=== PATIENT | male | born 1940 | race African-American/Black ===

== ENCOUNTER 2020-05-20 11:29 | Inpatient (IN) | payer OTHER, MEDICARE ==
[~2020-05-20] VITALS: Ht 175.3 cm; Wt 67.8 kg
[2020-05-20] MEDS ORDERED: methylPREDNISolone SOD SUCC 125 MG/2 ML VL IV ONE (12:00)
[2020-05-20 12:48] LABS: Basophils # (auto) 0 10 ^3/uL (0-0.2); Basophils % (auto) 0.3 % (0.0-2.0); Eosinophils # (auto) 0 10 ^3/uL (0-0.8); Eosinophils % (auto) 0.3 % (0.0-7.0); Hematocrit 42.8 % (41.0-53.0); Hemoglobin 14.4 g/dL (13.5-17.5); Lymphocytes # (auto) 0.5 10 ^3/uL (0.4-5.4); Lymphocytes % (auto) 7.2 % (10.0-50.0); Mean Corpuscular Hemoglobin 28.8 pg (28.0-32.0); Mean Corpuscular Hgb Conc. 33.5 g/dL (32.0-36.0); Mean Corpuscular Volume 85.8 fL (80.0-100.0); Monocytes # (auto) 0.9 10 ^3/uL (0-1.3); Monocytes % (auto) 12.8 % (0.0-12.0); Neutrophils # (auto) 5.7 10 ^3/uL (1.6-8.6); Neutrophils % (auto) 79.4 % (37.0-80.0); Nucleated Red Blood Cells % 0.1 %; Red Blood Cells 4.99 10^6/uL (4.5-5.90); White Blood Cell 7.2 10^3/uL (4.4-10.8)
[2020-05-20 13:01] LABS: Albumin 2.7 g/dL (3.4-5.0); Anion Gap 8 (5-15); Blood Urea Nitrogen 34 mg/dL (7-18); Calcium 9.1 mg/dL (8.5-10.1); Carbon Dioxide 32 mmol/L (21-32); Chloride 97 mmol/L (98-107); Glucose 117 mg/dL (74-106); Sodium 137 mmol/L (136-145)
[2020-05-20 13:11] LABS: Alanine Aminotransferase 57 U/L (16-61); Alkaline Phosphatase 74 U/L (45-117); Aspartate Aminotransferase 77 U/L (15-37); BUN/Creatinine Ratio 20.4; Bilirubin, Total 0.7 mg/dL (0.2-1.0); GFR African American 51 mL/min; GFR Non-African American 42 mL/min; Total Protein 8.5 g/dL (6.4-8.2)
[2020-05-20 13:20] LABS: CRP High Sensitivity > 19.0 mg/dL (< 0.3)
[2020-05-20] MEDS ORDERED: SOD CHL 0.9%/ KCL 40MEQ 1,000 ML IV ONE (18:00)
[2020-05-20] MEDS ORDERED: NITROGLYCERIN 0.4 MG SL TAB SL PRN (18:00)
[2020-05-20] MEDS ORDERED: REMDESIVIR PER PHARMACY 0 ML IV SCH (18:00)
[2020-05-20] MEDS ORDERED: hydrALAZINE HCL 20 MG/ML VL IV PRN (18:00)
[2020-05-20] MEDS ORDERED: ONDANSETRON HCL 4 MG/2 ML VIAL IV PRN (18:00)
[2020-05-20] MEDS ORDERED: ACETAMINOPHEN 500 MG TAB PO PRN (18:00)
[2020-05-20] MEDS ORDERED: MORPHINE SULFATE INJECTION 2 MG/ML SYRG IV PRN ×2 (18:00)
[2020-05-20] MEDS ORDERED: HYDROcodone-ACET 5/325MG TAB PO PRN (18:00)
[2020-05-20 19:25] LABS: Lactate Dehydrogenase 612 U/L (87-241)
[2020-05-20 20:08] LABS: CRP High Sensitivity > 19.0 mg/dL (< 0.3)
[2020-05-20] MEDS: BUDESONIDE (INHALATION) 180 MCG IH IN SCH (22:00)
[2020-05-20] MEDS: BUDESONIDE (INHALATION) 0.5 MG/2 ML NEB NEB SCH (22:00)
[2020-05-20] MEDS: ENOXAPARIN SOD 40 MG/0.4 ML SYRINGE SC SCH (22:38)
[2020-05-20] MEDS ORDERED: REMDESIVIR 200 MG in NS 210ml LOADING DOSE ADULT IV ONE (23:00)
[2020-05-21] MEDS ORDERED: OMEP20TA PO (02:18)
[2020-05-21] MEDS ORDERED: CHOL20007 PO (02:18)
[2020-05-21] MEDS ORDERED: AMLO-489 PO (02:18)
[2020-05-21] MEDS ORDERED: HYDR25TA4 PO (02:18)
[2020-05-21] MEDS ORDERED: POTA10TA51 PO (02:18)
[2020-05-21 05:28] LABS: Urine Bacteria MOD /hpf (None Seen); Urine Blood Negative /uL (Negative); Urine Mucus MODERATE (None Seen); Urine Specific Gravity 1.026 (1.001-1.035); Urine WBC 19 /hpf (0 - 3)
[2020-05-21] MEDS: BUDESONIDE (INHALATION) 180 MCG IH IN SCH ×2 (06:05→19:23)
[2020-05-21 07:00] LABS: Basophils # (auto) 0 10 ^3/uL (0-0.2); Basophils % (auto) 0.2 % (0.0-2.0); Eosinophils # (auto) 0 10 ^3/uL (0-0.8); Hematocrit 39.9 % (41.0-53.0); Hemoglobin 13.6 g/dL (13.5-17.5); Lymphocytes # (auto) 0.6 10 ^3/uL (0.4-5.4); Lymphocytes % (auto) 10.4 % (10.0-50.0); Mean Corpuscular Hemoglobin 29.1 pg (28.0-32.0); Mean Corpuscular Volume 85.5 fL (80.0-100.0); Monocytes # (auto) 0.9 10 ^3/uL (0-1.3); Monocytes % (auto) 14.3 % (0.0-12.0); Neutrophils # (auto) 4.7 10 ^3/uL (1.6-8.6); Neutrophils % (auto) 75.1 % (37.0-80.0); Nucleated Red Blood Cells % 0.1 %; Red Blood Cells 4.66 10^6/uL (4.5-5.90); Red Cell Distribution Width 15.1 % (11.8-14.3); White Blood Cell 6.2 10^3/uL (4.4-10.8)
[2020-05-21 07:23] LABS: Calcium 9.1 mg/dL (8.5-10.1); Potassium 3.3 mmol/L (3.5-5.1)
[2020-05-21 07:32] LABS: Albumin 2.4 g/dL (3.4-5.0); BUN/Creatinine Ratio 30.9; Bilirubin, Total 0.4 mg/dL (0.2-1.0); Total Protein 7.7 g/dL (6.4-8.2)
[2020-05-21 08:00] VITALS: BP 125/67
[2020-05-21] MEDS: ALBUTEROL SULF HFA 90MCG INH 200DOSE IN PRN ×2 (08:53→19:23)
[2020-05-21] MEDS ORDERED: cefTRIAXone 1GM/50ML D5W 50 ML IV SCH (09:00)
[2020-05-21] MEDS ORDERED: CHOLECALCIFEROL (VITD3) 2,000 UNIT CAP/TAB PO SCH (10:00)
[2020-05-21] MEDS ORDERED: amLODIPine BESYLATE 5 MG TAB PO SCH (10:00)
[2020-05-21] MEDS ORDERED: DexAMETHasone SOD PHOS 10MG/1ML VIAL INJ IV SCH (10:00)
[2020-05-21] MEDS ORDERED: ZINC SULFATE 220mg CAP or TAB PO SCH (10:00)
[2020-05-21] MEDS ORDERED: ASCORBIC ACID 1,000 MG TAB PO SCH (10:00)
[2020-05-21] MEDS ORDERED: AZITHROMYCIN 500MG/ 250ML 250 ML IV SCH (10:00)
[2020-05-21] MEDS: BUDESONIDE (INHALATION) 0.5 MG/2 ML NEB NEB SCH (10:00)
[2020-05-21] MEDS ORDERED: FAMOTIDINE 20 MG TAB PO SCH (10:00)
[2020-05-21] MEDS: ENOXAPARIN SOD 40 MG/0.4 ML SYRINGE SC SCH (10:03)
[2020-05-21] MEDS ORDERED: REMDESIVIR 100 MG in SODIUM CHL 0.9% 250 ML IV SCH (15:00)
[2020-05-21 16:00] VITALS: BP 128/63
[2020-05-21] MEDS ORDERED: ALBUAER3 IN (16:27)
[2020-05-21] MEDS ORDERED: CHOL1CAP47 PO (16:27)
[2020-05-21] MEDS ORDERED: FAMO-12 PO (16:27)
[2020-05-21] MEDS ORDERED: ZINC100T5 PO (16:27)
[2020-05-21] MEDS ORDERED: ASCO10003 PO (16:27)
[2020-05-21] MEDS ORDERED: AZIT500T66 PO (16:27)
[2020-05-21] MEDS ORDERED: DEX4T PO (16:27)
[2020-05-21] MEDS ORDERED: AML5T PO (16:27)
[2020-05-21] MEDS ORDERED: ASPI81CH59 PO (16:29)
[2020-05-21] MEDS ORDERED: ATOR20TA50 PO (16:29)
[2020-05-21 19:10] VITALS: BP 125/67
[2020-05-21 19:21] VITALS: BP 125/67
== END 2020-05-21 20:30 | disposition home or self-care (01) | DRG 177 ==
LOC: ER 11:29 → TELE 17:47 → TELE-EAST 23:40
PROVIDERS: ADMIT Nurse Practitioner Acute Care; ATTEND Hospitalist
PROC: XW033E5 Introduction of Remdesivir Anti-infective into Peripheral Vein, Percutaneous Approach, New Technology Group 5 (ICD-10-PCS; principal; 2020-05-20)
DX: U07.1 COVID-19 (principal); J96.01 Acute respiratory failure with hypoxia; N17.0 Acute kidney failure with tubular necrosis; J12.82 Pneumonia due to coronavirus disease 2019; D68.59 Other primary thrombophilia; E44.0 Moderate protein-calorie malnutrition; D89.839 Cytokine release syndrome, grade unspecified; R79.82 Elevated C-reactive protein (CRP); E87.6 Hypokalemia; N18.30 Chronic kidney disease, stage 3 unspecified; E88.09 Other disorders of plasma-protein metabolism, not elsewhere classified; K21.9 Gastro-esophageal reflux disease without esophagitis; E78.5 Hyperlipidemia, unspecified; K29.70 Gastritis, unspecified, without bleeding; Z96.659 Presence of unspecified artificial knee joint; I12.9 Hypertensive chronic kidney disease with stage 1 through stage 4 chronic kidney disease, or unspecified chronic kidney disease; E78.00 Pure hypercholesterolemia, unspecified; Z90.49 Acquired absence of other specified parts of digestive tract; Z79.899 Other long term (current) drug therapy; Z79.891 Long term (current) use of opiate analgesic; Z79.01 Long term (current) use of anticoagulants
CPT/HCPCS: 36415; 71045; 80053; 81001; 82728; 83605; 83615; 83880; 84443; 84484; 85025; 85379; 86141; 87040; 87426; 93005; 94640; G0378; J0696; J1100

== ENCOUNTER 2021-02-21 10:05 | Emergency (ER) | payer OTHER, MEDICARE ==
[~2021-02-21] VITALS: Ht 175.3 cm; Wt 72.6 kg
[~2021-02-21 10:05] MED LIST: ALBUAER3 IN; AML5T PO; ASCO10003 PO; ASPI81CH59 PO; ATOR20TA50 PO; AZIT500T66 PO; CHOL1CAP47 PO; DEX4T PO; FAMO-12 PO; ZINC100T5 PO
[2021-02-21] MEDS ORDERED: LACTULOSE 20Gm/30ML SOLN PO ONE (13:15)
[2021-02-21 14:14] VITALS: BP 112/57
== END 2021-02-21 13:31 | disposition home or self-care (01) ==
LOC: ER 10:05
DX: K59.00 Constipation, unspecified (principal); K21.9 Gastro-esophageal reflux disease without esophagitis; E78.5 Hyperlipidemia, unspecified; I10 Essential (primary) hypertension; Z90.49 Acquired absence of other specified parts of digestive tract; Z96.651 Presence of right artificial knee joint; Z79.82 Long term (current) use of aspirin; Z79.899 Other long term (current) drug therapy
CPT/HCPCS: 74176

== ENCOUNTER 2024-03-13 10:06 | Inpatient (IN) | payer MEDICARE, OTHER ==
[~2024-03-13] VITALS: Ht 177.8 cm; Wt 80.2 kg
[2024-03-13 10:31] LABS: Basophils # (auto) 0.1 10 ^3/uL (0-0.2); Basophils % (auto) 1.5 % (0.0-2.0); Eosinophils # (auto) 0.2 10 ^3/uL (0-0.8); Eosinophils % (auto) 4.1 % (0.0-7.0); Hematocrit 44.2 % (41.0-53.0); Hemoglobin 14.7 g/dL (13.5-17.5); Lymphocytes # (auto) 1.4 10 ^3/uL (0.4-5.4); Lymphocytes % (auto) 29.2 % (10.0-50.0); Mean Corpuscular Hemoglobin 29.6 pg (28.0-32.0); Mean Corpuscular Hgb Conc. 33.2 g/dL (32.0-36.0); Monocytes # (auto) 0.5 10 ^3/uL (0-1.3); Monocytes % (auto) 10.7 % (0.0-12.0); Neutrophils # (auto) 2.6 10 ^3/uL (1.6-8.6); Neutrophils % (auto) 54.5 % (37.0-80.0); Nucleated Red Blood Cells % 0.1 %; Platelet Count (auto) 268 10^3/uL (140-450); Red Blood Cells 4.97 10^6/uL (4.5-5.90); Red Cell Distribution Width 14.5 % (11.8-14.3); White Blood Cell 4.7 10^3/uL (4.4-10.8)
[2024-03-13 10:53] LABS: INR 1.03 (0.9-1.15); Partial Thromboplastin Time 26.8 SEC (24.5-34.5); Prothrombin Time 10.9 sec (9.3-11.8)
[2024-03-13 11:00] VITALS: PULSE 65; RESP 18; O2SAT 98
[2024-03-13] MEDS: ONDANSETRON ODT 4 MG TAB PO ONE (11:11)
[2024-03-13] MEDS: FAMOTIDINE 20 MG TAB PO ONE (11:11)
[2024-03-13 11:13] LABS: Alanine Aminotransferase 24 U/L (7-40); Albumin 4.2 g/dL (3.2-4.8); Alkaline Phosphatase 55 U/L (46-116); Anion Gap 4 (5-15); Aspartate Aminotransferase 18 U/L (13-40); BUN/Creatinine Ratio 11.4 (10.0-20.0); Bilirubin, Total 0.4 mg/dL (0.2-1.0); Blood Urea Nitrogen 14 mg/dL (9-23); Calcium 10.2 mg/dL (8.7-10.4); Carbon Dioxide 29 mmol/L (20-31); Chloride 109 mmol/L (98-107); Glucose 88 mg/dL (74-106); Potassium 3.9 mmol/L (3.5-5.1); Sodium 142 mmol/L (136-145)
[2024-03-13 11:14] LABS: Total Protein 7.2 g/dL (5.7-8.2)
[2024-03-13] MEDS ORDERED: ACETAMINOPHEN 325 MG TAB PO PRN (13:45)
[2024-03-13] MEDS ORDERED: HYDROcodone-ACET 5/325MG TAB PO PRN (13:45)
[2024-03-13] MEDS ORDERED: hydrALAZINE HCL 20 MG/ML VL IV PRN (13:45)
[2024-03-13] MEDS ORDERED: DOCUSATE SOD 100 MG CAP PO PRN (13:45)
[2024-03-13] MEDS ORDERED: ONDANSETRON HCL 4 MG/2 ML VIAL IV PRN (13:45)
[2024-03-13] MEDS: SODIUM CHLOR 0.9% PF (SALINE LOCK) 10ML VIAL/SYR IV SCH (14:01)
[2024-03-13] MEDS ORDERED: NITROGLYCERIN 0.4 MG SL TAB SL PRN (15:45)
[2024-03-13] MEDS ORDERED: MORPHINE SULFATE INJ 2 MG/ml SYRG IV PRN (15:45)
[2024-03-13 22:04] VITALS: BP 144/71; PULSE 69; RESP 20; TEMP 97.7; O2SAT 97
[2024-03-13] MEDS: ATORVASTATIN 20 MG TAB PO SCH (22:27)
[2024-03-13 23:10] VITALS: BP 144/71; PULSE 69; RESP 20; TEMP 97.7; O2SAT 97
[2024-03-14] VITALS (8 sets, daily range): BP systolic 129–153; BP diastolic 72–81; PULSE 62–80; RESP 16–20; TEMP 97.5–98.4; O2SAT 94–100
[2024-03-14] MEDS: INFLUENZA TRIVALENT 2024-2025 0.5 ML INJ IM ONE (06:08)
[2024-03-14 07:00] LABS: Alanine Aminotransferase 19 U/L (7-40); Alkaline Phosphatase 55 U/L (46-116); Anion Gap 5 (5-15); Aspartate Aminotransferase 17 U/L (13-40); BUN/Creatinine Ratio 13.3 (10.0-20.0); Bilirubin, Total 0.4 mg/dL (0.2-1.0); Blood Urea Nitrogen 15 mg/dL (9-23); Calcium 9.6 mg/dL (8.7-10.4); Carbon Dioxide 30 mmol/L (20-31); Chloride 108 mmol/L (98-107); Glucose 95 mg/dL (74-106); Potassium 3.5 mmol/L (3.5-5.1); Sodium 143 mmol/L (136-145); Total Protein 6.6 g/dL (5.7-8.2)
[2024-03-14 07:08] LABS: Basophils # (auto) 0.1 10 ^3/uL (0-0.2); Basophils % (auto) 1.7 % (0.0-2.0); Eosinophils # (auto) 0.3 10 ^3/uL (0-0.8); Eosinophils % (auto) 7.4 % (0.0-7.0); Hematocrit 42.7 % (41.0-53.0); Hemoglobin 14.1 g/dL (13.5-17.5); Lymphocytes # (auto) 1.2 10 ^3/uL (0.4-5.4); Lymphocytes % (auto) 29.6 % (10.0-50.0); Mean Corpuscular Hemoglobin 29.3 pg (28.0-32.0); Mean Corpuscular Volume 88.9 fL (80.0-100.0); Monocytes # (auto) 0.5 10 ^3/uL (0-1.3); Monocytes % (auto) 11.9 % (0.0-12.0); Neutrophils % (auto) 49.4 % (37.0-80.0); Nucleated Red Blood Cells % 0.1 %; Platelet Count (auto) 261 10^3/uL (140-450); Red Cell Distribution Width 14.5 % (11.8-14.3); White Blood Cell 4.1 10^3/uL (4.4-10.8)
[2024-03-14] MEDS: FAMOTIDINE (10MG/ML) 2ML VL IV SCH (09:29)
[2024-03-14] MEDS: ASPirin 81 mg TAB PO SCH (09:29)
[2024-03-14] MEDS: amLODIPine BESYLATE 5 MG TAB PO SCH (09:30)
[2024-03-14] MEDS: FAMOTIDINE 20 MG TAB PO ONE (11:45)
[2024-03-15] VITALS (7 sets, daily range): BP systolic 127–165; BP diastolic 62–83; PULSE 65–78; RESP 17–19; TEMP 97.5–98.1; O2SAT 97–98
[2024-03-15] MEDS: FAMOTIDINE 20 MG TAB PO SCH (09:35)
== END 2024-03-15 13:55 | disposition home or self-care (01) | DRG 392 ==
LOC: EDBD 10:06 → ER 10:06 → TELE 15:45 → TELE-EAST 21:50
PROVIDERS: ADMIT Nurse Practitioner Family; ATTEND Student in an Organized Health Care Education/Training Program
DX: K21.9 Gastro-esophageal reflux disease without esophagitis (principal); I25.10 Atherosclerotic heart disease of native coronary artery without angina pectoris; E78.5 Hyperlipidemia, unspecified; I44.30 Unspecified atrioventricular block; I10 Essential (primary) hypertension; Z79.82 Long term (current) use of aspirin; Z79.899 Other long term (current) drug therapy; Z90.49 Acquired absence of other specified parts of digestive tract
CPT/HCPCS: 36415; 71045; 80053; 84484; 85025; 85610; 85730; 90656; 93005; 93306; 96360; 99291; G0378; J3490; Q0162